=== PATIENT | male | born 1940 | race Caucasian/White ===

== ENCOUNTER → 2017-03-10 | Outpatient (CLI) | payer OTHER | END | disposition home or self-care (01) | LOC: LAB.O 14:18 | PROVIDERS: ATTEND Nurse Practitioner Family | DX: D63.8 Anemia in other chronic diseases classified elsewhere (principal) ==

== ENCOUNTER → 2017-07-09 | Outpatient (CLI) | payer OTHER | LOC: LAB.O 11:46 | PROVIDERS: ATTEND Nurse Practitioner Family | DX: R40.4 Transient alteration of awareness (principal); N30.00 Acute cystitis without hematuria ==

== ENCOUNTER → 2017-08-04 | Outpatient (CLI) | payer OTHER ==
--- NOTE | 2017-08-04 13:12 | RAD ---
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 No consolidation nor pneumothorax nor pleural effusion in either lung. Cardiomediastinal contours are unremarkable in appearance. Thoracic bony structures grossly intact. Patient underwent prior median sternotomy. IMPRESSION: No acute cardiopulmonary process. Electronically signed by: Artie Saha MD 08/04/2017 1:10 PM [employer]
== END ==
LOC: LAB.O 11:41
PROVIDERS: ATTEND Nurse Practitioner Family
DX: I50.40 Unspecified combined systolic (congestive) and diastolic (congestive) heart failure (principal)

== ENCOUNTER → 2017-08-05 | Outpatient (CLI) | payer OTHER | LOC: LAB.O 10:08 | PROVIDERS: ATTEND Nurse Practitioner Family | DX: I50.40 Unspecified combined systolic (congestive) and diastolic (congestive) heart failure (principal) ==

== ENCOUNTER → 2017-08-09 | Outpatient (CLI) | payer OTHER | LOC: LAB.O 11:09 | PROVIDERS: ATTEND Nurse Practitioner Family | DX: K75.9 Inflammatory liver disease, unspecified (principal); I50.40 Unspecified combined systolic (congestive) and diastolic (congestive) heart failure ==